=== PATIENT | female | born 1990 | race Caucasian/White ===

== ENCOUNTER 2020-03-23 07:20 | Observation (INO) | payer BC ==
[~2020-03-23] VITALS: Ht 165.1 cm; Wt 74.5 kg
[2020-03-23] MEDS ORDERED: PLEASE ENTER ALLERGIES MC SCH (07:30)
[2020-03-23] MEDS ORDERED: LACTATED RINGERS 1,000 ML IV SCH (07:30)
[2020-03-23] MEDS ORDERED: SODIUM CITRATE/CITRIC ACID 30 ML UDC PO ONE (07:30)
[2020-03-23] MEDS ORDERED: CEFAZOLIN PMX 1GM/50ML IVPB ONE (07:30)
[2020-03-23] MEDS ORDERED: METOCLOPRAMIDE 5 MG/ML, 2ML IVPush ONE (07:30)
[2020-03-23 07:56] VITALS: BP 123/74
[2020-03-23] MEDS ORDERED: PLEASE ENTER HEIGHT AND WEIGHT MC SCH (08:00)
[2020-03-23] MEDS ORDERED: METOCLOPRAMIDE 5 MG/ML, 2ML ONE (08:13)
[2020-03-23] MEDS ORDERED: SODIUM CITRATE/CITRIC ACID 15 ML UDC ONE (08:14)
[2020-03-23 08:26] LABS: BASOPHILS % (AUTO) 0 % (0-1); EOSINOPHILS % (AUTO) 1 % (1-7); LYMPHOCYTES % (AUTO) 15 % (22-44); MEAN CORPUSCULAR HEMOGLOBIN 32.8 pg (27.0-34.8); MEAN CORPUSCULAR HGB CONC 34.7 g/dL (32.4-35.8); MEAN PLATELET VOLUME 8.4 fL (7.4-10.4); MONOCYTES % (AUTO) 6 % (2-9); NEUTROPHILS % (AUTO) 78 % (42-75); PLATELET COUNT 209 x10^3/uL (130-400); RED BLOOD COUNT 4.38 x10^6/uL (3.82-5.3); RED CELL DISTRIBUTION WIDTH 12.4 % (9.6-15.2)
[2020-03-23 08:39] LABS: MD NO
[2020-03-23] MEDS ORDERED: PREN1TAB60 PO (08:43)
== END 2020-03-23 09:10 | disposition home or self-care (01) ==
LOC: LDOP 07:20 → LDIP 08:14
PROVIDERS: ADMIT Obstetrics & Gynecology Maternal & Fetal Medicine; ATTEND Obstetrics & Gynecology Maternal & Fetal Medicine
DX: O34.31 Maternal care for cervical incompetence, first trimester (principal); Z20.828 Contact with and (suspected) exposure to other viral communicable diseases; Z87.51 Personal history of pre-term labor; Z3A.13 13 weeks gestation of pregnancy
CPT/HCPCS: 36415; 85025; 87635; 96360; 99201; G0378; J7120; G0463

== ENCOUNTER 2020-04-05 07:03 | Observation (INO) | payer BC ==
[~2020-04-05] VITALS: Ht 165.1 cm; Wt 74.5 kg
[~2020-04-05 07:03] MED LIST: PREN1TAB60 PO
[2020-04-05 07:30] VITALS: BP 122/74
[2020-04-05] MEDS ORDERED: SODIUM CITRATE/CITRIC ACID 30 ML UDC PO ONE (07:30)
[2020-04-05] MEDS ORDERED: CEFAZOLIN PMX 1GM/50ML IVPB ONE (07:30)
[2020-04-05] MEDS ORDERED: LACTATED RINGERS 1,000 ML IV SCH (07:30)
[2020-04-05 07:51] LABS: BASOPHILS % (AUTO) 1 % (0-1); EOSINOPHILS % (AUTO) 0 % (1-7); LYMPHOCYTES % (AUTO) 14 % (22-44); MEAN CORPUSCULAR HEMOGLOBIN 32.8 pg (27.0-34.8); MEAN CORPUSCULAR HGB CONC 34.7 g/dL (32.4-35.8); MEAN PLATELET VOLUME 8.3 fL (7.4-10.4); MONOCYTES % (AUTO) 6 % (2-9); NEUTROPHILS % (AUTO) 79 % (42-75); PLATELET COUNT 199 x10^3/uL (130-400); RED BLOOD COUNT 4.11 x10^6/uL (3.82-5.3); RED CELL DISTRIBUTION WIDTH 12.6 % (9.6-15.2)
[2020-04-05 07:57] LABS: MD NO
[2020-04-05] MEDS ORDERED: CEFAZOLIN 2,000 MG in SODIUM CHLORIDE 0.9% 50 ML IV SCH (09:30)
[2020-04-05] MEDS ORDERED: BUPIVACAINE 0.75% PF 10ML ONE (10:43)
== END 2020-04-05 18:01 | disposition home or self-care (01) ==
LOC: LDOP 07:03 → LDIP 07:31
PROVIDERS: ADMIT Obstetrics & Gynecology Maternal & Fetal Medicine; ATTEND Obstetrics & Gynecology Maternal & Fetal Medicine
DX: O34.32 Maternal care for cervical incompetence, second trimester (principal); Z87.51 Personal history of pre-term labor; Z79.899 Other long term (current) drug therapy; Z88.0 Allergy status to penicillin; Z3A.15 15 weeks gestation of pregnancy
CPT/HCPCS: 36415; 59320; 85025; 89060; 96361; 96365; G0378; J0690; J7120; Q0114

== ENCOUNTER 2020-09-14 15:51 | Outpatient (CLI) | payer BC ==
[~2020-09-14] VITALS: Ht 165.1 cm; Wt 95.5 kg
[2020-09-14 16:07] VITALS: BP 128/62
== END 2020-09-14 19:35 | disposition home or self-care (01) ==
LOC: LDOP 15:51
PROVIDERS: ATTEND Obstetrics & Gynecology
DX: O26.893 Other specified pregnancy related conditions, third trimester (principal); R10.9 Unspecified abdominal pain; Z3A.38 38 weeks gestation of pregnancy
CPT/HCPCS: 59025

== ENCOUNTER 2020-09-17 05:32 | Inpatient (IN) | payer BC ==
[~2020-09-17] VITALS: Ht 165.1 cm; Wt 93.6 kg
[2020-09-17] MEDS ORDERED: FENTANYL PF 100 MCG/2ML IV PRN (06:00)
[2020-09-17] MEDS ORDERED: LACTATED RINGERS 1,000 ML IV SCH (06:00)
[2020-09-17] MEDS ORDERED: ONDANSETRON 2MG/ML, 2ML IVPush PRN (06:00)
[2020-09-17] MEDS ORDERED: TERBUTALINE 1 MG/ML, 1ML SQ PRN (06:00)
[2020-09-17] MEDS ORDERED: TERBUTALINE 1 MG/ML, 1ML IVPush PRN (06:00)
[2020-09-17] MEDS ORDERED: CALCIUM CARBONATE 500 MG TAB.CHEW PO PRN (06:00)
[2020-09-17] MEDS ORDERED: OXYTOCIN 30U/ 0.9% NaCL 500ML 500 ML IV ONE (06:00)
[2020-09-17] MEDS ORDERED: D5%-LACTATED RINGERS 1,000 ML IV SCH (06:00)
[2020-09-17 06:14] LABS: BASOPHILS % (AUTO) 0 % (0-1); EOSINOPHILS % (AUTO) 1 % (1-7); LYMPHOCYTES % (AUTO) 15 % (22-44); MEAN CORPUSCULAR HEMOGLOBIN 32.4 pg (27.0-34.8); MEAN CORPUSCULAR HGB CONC 34.4 g/dL (32.4-35.8); MEAN PLATELET VOLUME 8.2 fL (7.4-10.4); MONOCYTES % (AUTO) 8 % (2-9); NEUTROPHILS % (AUTO) 77 % (42-75); PLATELET COUNT 205 x10^3/uL (130-400); RED BLOOD COUNT 4.19 x10^6/uL (3.82-5.3); RED CELL DISTRIBUTION WIDTH 13.2 % (9.6-15.2)
[2020-09-17] MEDS: CLINDAMYCIN PMX 900MG/50ML 50 ML IVPB SCH ×2 (06:17→13:51)
[2020-09-17] MEDS ORDERED: PLEASE ENTER HEIGHT AND WEIGHT MC SCH (06:30)
[2020-09-17] MEDS ORDERED: MISOPROSTOL 200 MCG TABLET ONE (06:49)
[2020-09-17] MEDS ORDERED: NEWBORN KIT ONE (06:49)
[2020-09-17] MEDS ORDERED: LIDOCAINE 1%, 20ML ONE (06:49)
[2020-09-17] MEDS: FENTANYL PF 100 MCG/2ML IVPush PRN ×3 (13:51→20:27)
[2020-09-17] MEDS: OXYTOCIN 30U/ 0.9% NaCL 500ML 500 ML IV SCH (21:00)
[2020-09-17] MEDS ORDERED: OXYTOCIN 30U/ 0.9% NaCL 500ML 500 ML ONE (22:24)
[2020-09-17] MEDS ORDERED: IBUPROFEN 600 MG TABLET ONE (22:41)
[2020-09-17] MEDS: IBUPROFEN 600 MG TABLET PO PRN (22:45)
[2020-09-17] MEDS ORDERED: RHOGAM FROM BLOOD BANK 1 NOTE EA IM/IV ONE (23:30)
[2020-09-17] MEDS ORDERED: SIMETHICONE 80 MG CHEW TAB PO PRN (23:30)
[2020-09-17] MEDS ORDERED: ONDANSETRON 2MG/ML, 2ML IV PRN (23:30)
[2020-09-17] MEDS ORDERED: OXYcodone/APAP 5/325MG TABLET PO PRN ×2 (23:30)
[2020-09-17 23:47] VITALS: BP 111/73
[2020-09-18 04:36] VITALS: BP 109/70
[2020-09-18 04:55] LABS: BASOPHILS % (AUTO) 0 % (0-1); EOSINOPHILS % (AUTO) 0 % (1-7); LYMPHOCYTES % (AUTO) 6 % (22-44); MEAN CORPUSCULAR HGB CONC 34.9 g/dL (32.4-35.8); MEAN PLATELET VOLUME 8.5 fL (7.4-10.4); MONOCYTES % (AUTO) 6 % (2-9); NEUTROPHILS % (AUTO) 88 % (42-75); PLATELET COUNT 221 x10^3/uL (130-400); RED CELL DISTRIBUTION WIDTH 13.1 % (9.6-15.2)
[2020-09-18] MEDS ORDERED: PRENATAL VIT/IRON/FA 1 EACH TABLET ONE (05:10)
[2020-09-18] MEDS: DOCUSATE 100 MG CAPSULE PO PRN ×2 (05:11→19:41)
[2020-09-18] MEDS: IBUPROFEN 600 MG TABLET PO PRN ×3 (05:11→19:41)
[2020-09-18] MEDS: PRENATAL VIT/IRON/FA 1 EACH TABLET PO SCH (05:12)
[2020-09-18 08:20] VITALS: BP 112/74
[2020-09-18] MEDS: OXYTOCIN 30U/ 0.9% NaCL 500ML 500 ML IV SCH ×2 (09:30→19:30)
[2020-09-18] MEDS ORDERED: KETOROLAC 30 MG/1 ML ONE (11:03)
[2020-09-18 12:10] VITALS: BP 116/73
[2020-09-18 16:10] VITALS: BP 101/67
[2020-09-18 19:30] VITALS: BP 118/83
[2020-09-19] MEDS: IBUPROFEN 600 MG TABLET PO PRN ×2 (02:14→09:57)
[2020-09-19] MEDS: OXYTOCIN 30U/ 0.9% NaCL 500ML 500 ML IV SCH ×2 (05:30→15:49)
[2020-09-19 09:30] VITALS: BP 124/79
[2020-09-19] MEDS: PRENATAL VIT/IRON/FA 1 EACH TABLET PO SCH (09:57)
[2020-09-19] MEDS: DOCUSATE 100 MG CAPSULE PO PRN (09:57)
[2020-09-19] MEDS ORDERED: IBUP-1223 PO (10:06)
[2020-09-19] MEDS ORDERED: DOCU-131 PO (10:07)
[2020-09-19] MEDS ORDERED: CALCIUM CARBONATE 500 MG TAB.CHEW ONE (14:29)
[2020-09-19] MEDS ORDERED: CALCIUM CARBONATE 500 MG TAB.CHEW PO PRN (14:30)
== END 2020-09-19 20:36 | disposition home or self-care (01) | DRG 807 ==
LOC: LDIP 05:32 → 2NE 09-18 00:30 → 2NW 09-18 04:54
PROVIDERS: ADMIT Obstetrics & Gynecology; ATTEND Obstetrics & Gynecology
PROC: 10E0XZZ Delivery of Products of Conception, External Approach (ICD-10-PCS; principal; 2020-09-17)
PROC: 0KQM0ZZ Repair Perineum Muscle, Open Approach (ICD-10-PCS; 2020-09-17)
PROC: 10907ZC Drainage of Amniotic Fluid, Therapeutic from Products of Conception, Via Natural or Artificial Opening (ICD-10-PCS; 2020-09-17)
PROC: 0W8NXZZ Division of Female Perineum, External Approach (ICD-10-PCS; 2020-09-17)
DX: O99.824 Streptococcus B carrier state complicating childbirth (principal); Z37.0 Single live birth; Z3A.38 38 weeks gestation of pregnancy; Z20.822 Contact with and (suspected) exposure to COVID-19; Z88.8 Allergy status to other drugs, medicaments and biological substances; O69.81X0 Labor and delivery complicated by cord around neck, without compression, not applicable or unspecified; O70.1 Second degree perineal laceration during delivery
CPT/HCPCS: 36415; 85025; 86592; 86850; 86900; 87635; G0378; J2405; J3010; J2590; J7120